=== PATIENT | female | born 1990 | race Caucasian/White ===

== ENCOUNTER 2018-08-19 14:44 | Emergency (ER) | payer SELFPAY ==
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
[2018-08-19] MEDS ORDERED: MORPHINE SULFATE 10 MG/ML INJ IV ONE (15:59)
[2018-08-19] MEDS ORDERED: ONDANSETRON HCL INJ/PF 4 MG/2 ML SDV IV ONE (15:59)
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
[2018-08-19 16:12] LABS: HEMATOCRIT 35.7 % (36.0-47.0); HEMOGLOBIN 12.3 g/dL (12.0-15.5); MEAN CORPUSCULAR HEMOGLOBIN 30.4 pg (27.0-33.4); MEAN CORPUSCULAR HGB CONC 34.5 g/dL (32.0-36.0); MEAN CORPUSCULAR VOLUME 88 fl (80-97); PLATELET COUNT 281 10^3/uL (150-450); RED BLOOD COUNT 4.05 10^6/uL (3.72-5.28); WHITE BLOOD COUNT 14.1 10^3/uL (4.0-10.5)
[2018-08-19 16:24] LABS: ALANINE AMINOTRANSFERASE 30 U/L (9-52); ALBUMIN 3.4 g/dL (3.5-5.0); ALKALINE PHOSPHATASE 152 U/L (38-126); ANION GAP 11 (5-19); ASPARTATE AMINO TRANSFERASE 27 U/L (14-36); BILIRUBIN,DIRECT 0.4 mg/dL (0.0-0.4); BILIRUBIN,TOTAL 0.6 mg/dL (0.2-1.3); BLOOD UREA NITROGEN 12 mg/dL (7-20); CALCIUM 8.8 mg/dL (8.4-10.2); CARBON DIOXIDE 29 mmol/L (22-30); CHLORIDE 102 mmol/L (98-107); GLUCOSE 111 mg/dL (75-110); POTASSIUM 3.5 mmol/L (3.6-5.0); SODIUM 141.8 mmol/L (137-145); TOTAL PROTEIN 6.5 g/dL (6.3-8.2)
[2018-08-19 16:32] LABS: ABSOLUTE LYMPHOCYTES# (MANUAL) 1.7 10^3/uL (0.5-4.7); ABSOLUTE MONOCYTES # (MANUAL) 1.4 10^3/uL (0.1-1.4); ABSOLUTE NEUTROPHILS# (MANUAL) 10.9 10^3/uL (1.7-8.2); ANISOCYTOSIS SLIGHT; BASOPHILS % (MANUAL) 0 % (0-2); EOSINOPHILS % (MANUAL) 1 % (0-6); LYMPHOCYTES % (MANUAL) 12 % (13-45); MONOCYTES % (MANUAL) 10 % (3-13); PLATELET CLUMPS PRESENT; PLATELET COMMENT ADEQUATE; SEGMENTED NEUTROPHILS % (MAN) 77 % (42-78); TOTAL CELLS COUNTED 100
[2018-08-19 17:18] LABS: APPEARANCE,URINE SLIGHTLY-CLOUDY; BILIRUBIN,URINE NEGATIVE (NEGATIVE); COLOR,URINE YELLOW; GLUCOSE, URINE NEGATIVE (NEGATIVE); KETONES,URINE NEGATIVE (NEGATIVE); LEUKOCYTE ESTERASE,URINE LARGE (NEGATIVE); NITRITE,URINE NEGATIVE (NEGATIVE); PROTEIN,URINE 30 mg/dL (NEGATIVE); URINE SPECIFIC GRAVITY 1.009
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
[2018-08-19] MEDS ORDERED: ONDANSETRON ODT 4 MG TAB (6 TAB/ER DISP) PO PRN (18:50)
[2018-08-19 19:03] VITALS: BP 109/67
== END 2018-08-19 18:50 | disposition home or self-care (01) ==
LOC: EEVIPCON 14:44 → ER 14:44
DX: F07.81 Postconcussional syndrome (principal); N30.01 Acute cystitis with hematuria; Y04.0XXA Assault by unarmed brawl or fight, initial encounter
CPT/HCPCS: 99284; 96374; 96375; 36415; 84702; 85025; 80053; 81001; 71046; 73522; 71120; J2270; J2405